=== PATIENT | female | born 1955 | race Caucasian/White ===

== ENCOUNTER 2016-10-06 06:21 | Day surgery (SDC) | payer OTHER ==
[2016-10-05 11:05] VITALS: BMI 31.4
[~2016-10-06] VITALS: Ht 157.5 cm; Wt 77.6 kg
[2016-10-06] VITALS (9 sets, daily range): BP systolic 97–141; BP diastolic 55–76; PULSE 73–99; RESP 14–18; Ht 157.5 cm; Wt 77.6 kg
--- NOTE | 2016-10-06 07:29 | HPN ---
Date/Time of Note Date/Time of Note DATE: 10/06/16 TIME: 07:28 Interval H&P Admission Note Pt. seen H&P reviewed: No system changes KAI MEJIA MD Oct 06, 2016 07:29
[2016-10-06] MEDS ORDERED: VALS1TAB82 PO (07:44)
[2016-10-06] MEDS ORDERED: ATOR10TA65 PO (07:45)
[2016-10-06] MEDS ORDERED: ISOSULFAN BLUE 1% 5 ML INJ SC ONE (08:50)
[2016-10-06] MEDS ORDERED: BUPIVACAINE 0.25% (MPF) 30 ML INJ ONE (08:50)
[2016-10-06] MEDS ORDERED: LACTATED RINGER'S 1,000 ML IV SCH (09:00)
[2016-10-06] MEDS ORDERED: FENTAnyl 50 MCG/ML VIAL ONE (09:04)
[2016-10-06] MEDS ORDERED: MIDAZOLAM 1 MG/ML 2 ML INJ ONE (09:04)
[2016-10-06] MEDS ORDERED: CLINDAMYCIN 900 MG/D5W (PMX) 50 ML IVPB ONE (09:08)
[2016-10-06] MEDS ORDERED: PHENYLephrine (100 MCG/ML) 5ML SYG ONE (09:10)
[2016-10-06] MEDS ORDERED: DEXAMETHASONE 4 MG/ML 1 ML INJ ONE (09:13)
[2016-10-06] MEDS ORDERED: FAMOTIDINE 20 MG INJ ONE (09:13)
[2016-10-06] MEDS ORDERED: ONDANSETRON 4 MG INJ ONE (09:13)
[2016-10-06] MEDS ORDERED: LIDOCAINE 2% (SDV) 5 ML INJ ONE (09:50)
[2016-10-06] MEDS ORDERED: PROPOFOL 20 ML ONE (09:50)
--- NOTE | 2016-10-06 10:24 | OPR ---
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 Right partial mastectomy 2. Right axillary sentinel node biopsy 3. Right axillary lymph node dissection Surgeon: KAI MEJIA MD Anesthesia: general Anesthesiologist: ASPEN COTA DO Estimated Blood Loss: 10 - 50 ml's Specimens 1. Right axillary sentinel node 2. Right partial mastectomy 3. Right axilla Grafts/Implants #19 round Abhishek Tubes/Drains Abhishek drain Complications: None Pt Condition Post Procedure: stable Disposition: PACU Operative\Procedure Findings After satisfactory general anesthesia was achieved, 5 cc of Lymphazurin were injected into the tumor in the outer lower quadrant and near the areola. The right breast and axilla were then prepped and draped. An axillary skin incision was made in the axillary skin crease and carried down to the axillary fascia which was opened. Several blue lymphatics were traced leading to 2 sentinel nodes which were bright blue. These were resected over LigaSure and submitted. Later the sentinel node would return positive. In the interim a transverse skin incision was made in the outer lower quadrant of the right breast and carried down to subcutaneous tissues. The parenchyma around the tumor was excised widely with electrocautery with an attempt to achieve at least 1 cm margins. The specimen was excised in its entirety with electrocautery and oriented with suture. Short suture superior long suture lateral. Total hemostasis was achieved with electrocautery. Once the sentinel node biopsy returned positive, a right axillary lymph node dissection was performed. The entire axillary fat pad inferior to the right axillary vein was dissected with the use of the LigaSure device. The thoracodorsal nerve and long thoracic nerve were identified and preserved throughout this procedure. The entire axillary fat pad was delivered intact and submitted. Hemostasis was made total. Both wounds were infiltrated with a total of 30 cc of 0.25% plain Marcaine. Through a separate stab in the right inframammary crease a #19 round Abhishek drain was placed draining the breast and axilla. It was secured to the skin with 3-0 nylon. The skin incisions were closed with subcuticular absorbable live. Sponge and needle counts were reported as correct 2. The patient tolerated the procedure well and without incident or complication. KAI MEJIA MD Oct 06, 2016 10:23
[2016-10-06] MEDS ORDERED: PROCHLORPERAZINE 10 MG INJ IV PRN (10:30)
[2016-10-06] MEDS ORDERED: DIPHENHYDRAMINE 50 MG INJ IV PRN (10:30)
[2016-10-06] MEDS ORDERED: hydrALAzine 20 MG INJ IV PRN (10:30)
[2016-10-06] MEDS ORDERED: LABETALOL HCL 20MG INJ IV PRN (10:30)
[2016-10-06] MEDS ORDERED: MEPERIDINE 25 MG INJ IV PRN (10:30)
[2016-10-06] MEDS ORDERED: morphine 2 MG INJ IV PRN (10:30)
[2016-10-06] MEDS ORDERED: HYDROmorphONE (0.2 MG/ML) 10ML SYG IV PRN ×2 (10:30)
[2016-10-06] MEDS ORDERED: ONDANSETRON 4 MG INJ IV PRN ×2 (10:30)
[2016-10-06] MEDS ORDERED: OXYCODONE/ACETAMINOPHEN (5/325) TAB PO PRN ×2 (10:30)
[2016-10-06] MEDS ORDERED: HYDROmorphONE (0.2 MG/ML) 10ML SYG IV ONE (10:35)
== END 2016-10-06 11:59 | disposition home or self-care (01) ==
LOC: SDS 06:21
PROVIDERS: ATTEND Surgery
DX: C50.511 Malignant neoplasm of lower-outer quadrant of right female breast (principal); I10 Essential (primary) hypertension
CPT/HCPCS: 19301; 38500; 38792; 88307; 88331; J1100; J1170; J2250; J2405; J3010; Z7512; Z7610; J2370; Q9968

== ENCOUNTER 2016-12-08 06:40 | Day surgery (SDC) | payer OTHER ==
[2016-12-07 11:34] VITALS: BMI 35.6
[2016-12-08] VITALS (7 sets, daily range): BP systolic 98–135; BP diastolic 59–73; PULSE 70–80; RESP 14–18; Ht 157.5 cm; Wt 80.6 kg
[~2016-12-08] VITALS: Ht 157.5 cm; Wt 80.6 kg
[~2016-12-08 06:40] MED LIST: ATOR10TA65 PO; VALS1TAB82 PO
[2016-12-08] MEDS ORDERED: HYDROmorphONE (0.2 MG/ML) 10ML SYG IV PRN ×3 (07:00)
[2016-12-08] MEDS ORDERED: OXYCODONE/ACETAMINOPHEN (5/325) TAB PO PRN ×4 (07:00→10:00)
[2016-12-08] MEDS ORDERED: ONDANSETRON 4 MG INJ IV PRN ×2 (07:00→10:00)
[2016-12-08] MEDS ORDERED: LABETALOL HCL 20MG INJ IV PRN (07:00)
[2016-12-08] MEDS ORDERED: EPHEDrine SULFATE 50 MG/5 ML SYG IV PRN (07:00)
[2016-12-08] MEDS ORDERED: FENTAnyl 50 MCG/ML VIAL IV PRN ×2 (07:00)
[2016-12-08] MEDS ORDERED: MIDAZOLAM 1 MG/ML 2 ML INJ IV PRN (07:00)
[2016-12-08] MEDS ORDERED: DIPHENHYDRAMINE 50 MG INJ IV PRN (07:00)
[2016-12-08] MEDS ORDERED: hydrALAzine 20 MG INJ IV PRN (07:00)
[2016-12-08] MEDS ORDERED: ATROPINE 1 MG/10 ML SYRINGE IV PRN (07:00)
[2016-12-08] MEDS ORDERED: morphine (1 MG/ML) 10ML SYRINGE IV PRN ×3 (07:00)
[2016-12-08] MEDS ORDERED: MEPERIDINE 25 MG INJ IV PRN (07:00)
--- NOTE | 2016-12-08 07:25 | HPN ---
Date/Time of Note Date/Time of Note DATE: 12/08/16 TIME: 07:25 Interval H&P Admission Note Pt. seen H&P reviewed: No system changes KAI MEJIA MD Dec 08, 2016 07:25
[2016-12-08] MEDS ORDERED: GLYCOPYRROLATE 0.4 MG INJ ONE (08:22)
[2016-12-08] MEDS ORDERED: PROPOFOL 20 ML ONE (08:22)
[2016-12-08] MEDS ORDERED: NEOSTIGMINE 3 MG/3 ML SYRINGE ONE (08:22)
[2016-12-08] MEDS ORDERED: LIDOCAINE 2% (SDV) 5 ML INJ ONE (08:22)
[2016-12-08] MEDS ORDERED: FENTAnyl 50 MCG/ML VIAL ONE (08:22)
[2016-12-08] MEDS ORDERED: ROCURONIUM 50 MG INJ ONE (08:22)
[2016-12-08] MEDS ORDERED: MIDAZOLAM 1 MG/ML 2 ML INJ ONE (08:22)
[2016-12-08] MEDS ORDERED: DEXAMETHASONE 4 MG/ML 1 ML INJ ONE (08:23)
[2016-12-08] MEDS ORDERED: SUGAMMADEX SODIUM 200 MG/2 ML VIAL IV ONE (08:23)
[2016-12-08] MEDS ORDERED: ONDANSETRON 4 MG INJ ONE (08:23)
[2016-12-08] MEDS ORDERED: SUCCINYLCHOLINE CHLORIDE 100 MG/5 ML SYG IV ONE (08:23)
[2016-12-08] MEDS ORDERED: LIDOCAINE 1% (STERILE-PAK) 30 ML INJ ONE (08:56)
[2016-12-08] MEDS ORDERED: HEPARIN 1000 UNITS/ML 10 ML INJ ONE (08:58)
[2016-12-08] MEDS ORDERED: BUPIVACAINE 0.25% (MPF) 30 ML INJ ONE (09:44)
[2016-12-08] MEDS ORDERED: morphine 2 MG INJ IV PRN (10:00)
--- NOTE | 2016-12-08 10:02 | OPR ---
Date/Time of Note Date/Time of Note DATE: 12/08/16 TIME: 09:57 Operative Report Procedure Date: Dec 08, 2016 Preoperative Diagnosis Breast carcinoma with need for venous access Postoperative Diagnosis Breast carcinoma with need for venous access Operation Performed Left subclavian Port-A-Cath placement Surgeon: KAI MEJIA MD Anesthesia Type: general Anesthesiologist: LISA THORNE MD Estimated Blood Loss: 0 - 10 ml's Transfusion Required: no Specimen: none Grafts/Implants Left subclavian single port Port-A-Cath Tubes/Drains None Complications: no Pt Condition Post Procedure: stable Disposition: PACU Indications Need for venous access Procedure Description After satisfactory general anesthesia was achieved. The chest was prepped and draped. A needle was inserted easily and atraumatically into the left subclavian vein beneath the left clavicle at the apex of the axilla. The guidewire was then threaded through the needle into the superior vena cava. Next a 4 cm transverse skin incision was made at the guidewire entry site and carried down to the subcutaneous tissues, where a subcutaneous pocket was made with blunt dissection. The port was flushed with heparinized saline. The port was placed into the subcutaneous pocket the catheter length measured to fit in the superior vena cava. Redundant catheter was excised and discarded. Next a passes dilator and peel-away sheath were then threaded over the guidewire. The guidewire and dilator were removed. The catheter was threaded through the peel- away sheath for its full length. The peel-away sheath was removed. The port was aspirated yielding venous blood and flushed with heparinized saline. Chest x-ray showed that the catheter tip was in good position in the superior vena cava with no evidence of hemopneumothorax. Wound was then infiltrated with 20 cc of 0.5% plain Marcaine. The subcu was closed with interrupted 3-0 Vicryl suture and skin was closed with running 4-0 subcuticular Vicryl. Sponge and needle counts were reported as correct 2. KAI MEJIA MD Dec 08, 2016 10:02
--- NOTE | 2016-12-08 15:08 | RADRPT ---
PROCEDURE: XR Chest. CLINICAL INDICATION: Port-A-Cath placement in the OR TECHNIQUE: Single frontal view of the chest was obtained COMPARISON: None FINDINGS: See impression. IMPRESSION: Endotracheal tube with tip projecting 1.4 cm above the lauro. Left Port-A-Cath placement with tip p rojecting over the distal superior vena cava. Visualized portions of the lung demonstrate no consoli dation, pleural effusion or pneumothorax. Please note that the lateral left lung is not within the f ield of view. RPTAT: EE Physician William Date Time Electronically viewed and signed by Physician William on 12/08/2016 15:07 /
== END 2016-12-08 11:22 | disposition home or self-care (01) ==
LOC: SDS 06:40
PROVIDERS: ATTEND Surgery
DX: C50.911 Malignant neoplasm of unspecified site of right female breast (principal); E78.5 Hyperlipidemia, unspecified; J44.9 Chronic obstructive pulmonary disease, unspecified; I10 Essential (primary) hypertension; Z88.0 Allergy status to penicillin
CPT/HCPCS: 36561; 71010; C1788; J1100; J1644; J2250; J2405; J3010; Z7512; Z7610; J2710; J7999